=== PATIENT | female | born 1945 | race Two or more races ===

== ENCOUNTER 2018-01-09 16:29 | Emergency (ER) | payer MEDICARE, BC ==
[~2018-01-09] VITALS: Ht 154.9 cm; Wt 54.4 kg
--- NOTE | 2018-01-09 17:00 | NUR ---
BIB SISTER SENT FROM [facility] [place] FOR PSYCH EVAL. MEDICALLY CLEARED ALREADY. POSSIBLE GRAVE DISABILITY. ANXIOUS ABOUT BEING/LIVING ALONE. DENIES SI. A/OX 3, BREATHING EVEN AND UNLABORED. NO SOB, NAD, VITALS STABLE. SAFETY AND COMFORT MEASURES IN PLACE. AWAITING MD ORDERS.
--- NOTE | 2018-01-09 18:59 | NUR ---
PT SEEN WALKING OUT WITH FAMILY MEMBER AFTER PSYCH CLEARANCE BY PSYCH PET TEAM YOMI/BISHNU. DISCUSSIONS MADE TOGETHER WITH DR. BILLS TO DISCHARGE PT. DENIES SI/HI OR ANY MEDICAL C/O. STATES "I DONT WANNA WAIT FOR DISCHARGE PAPERWORK; JUST WANNA GO HOME. THE [facility] LEAD ALREADY GAVE ME REFERRALS". NOTIFIED.
[2018-01-09 19:02] VITALS: BP 127/71
== END 2018-01-09 19:04 | disposition home or self-care (01) ==
LOC: ER 16:31
DX: F41.9 Anxiety disorder, unspecified (principal); F32.9 Major depressive disorder, single episode, unspecified; E11.9 Type 2 diabetes mellitus without complications; Z60.2 Problems related to living alone; Z98.49 Cataract extraction status, unspecified eye; Z88.1 Allergy status to other antibiotic agents; Z88.6 Allergy status to analgesic agent
CPT/HCPCS: A4606; Z7610